=== PATIENT | male | born 1970 | race Two or more races ===

== ENCOUNTER → 2016-11-26 | Outpatient (CLI) | payer BC | END | disposition home or self-care (01) | LOC: RAD.S 09:31 | DX: R05 Cough (principal) ==

== ENCOUNTER → 2016-12-04 | Outpatient (CLI) | payer BC | END | disposition home or self-care (01) | LOC: RAD.S 09:46 | DX: R74.8 Abnormal levels of other serum enzymes (principal); K76.0 Fatty (change of) liver, not elsewhere classified ==

== ENCOUNTER → 2016-12-05 | Outpatient (CLI) | payer BC | END | disposition home or self-care (01) | LOC: RAD.S 13:19 | DX: R51 Headache (principal); R42 Dizziness and giddiness ==